=== PATIENT | female | born 1995 | race Caucasian/White ===

== ENCOUNTER 2020-10-06 14:34 | Emergency (ER) | payer OTHER, SELFPAY ==
[2020-10-06 14:43] VITALS: BP 109/65; PULSE 91; RESP 16; TEMP 37; O2SAT 100
--- NOTE | 2020-10-06 15:05 | ED.GENADULT ---
HPI - General Adult General Chief complaint: Ear Stated complaint: EARACHE/CONGESTION Source: patient and RN notes reviewed Limitations: no limitations History of Present Illness HPI narrative: The patient, a non-smoker/nondrinker, presents with a shorter couple day history of first scratchy sore throat, myalgias headache followed by congestion and ear fullness. No fever, cough, wheezing, vomiting/diarrhea; no Covid vaccination-no CP, loss of taste/smell, S OB. He believes the onset of symptoms occurred from sick family members/nieces and nephews Related Data Home Medications Medication Instructions Recorded Confirmed cetirizine mg 10/06/20 oxcarbazepine [Trileptal] 10/06/20 Allergies Allergy/AdvReac Type Severity Reaction Status Date / Time Penicillins Allergy Mild RASH/AFFECTED Verified 02/07/17 08:59 SEIZURES DIPHENHYDRAMINE HCL AdvReac Intermediate NEUROLOGICAL Uncoded 02/07/17 08:59 REACTION PMFSH Comments At time of signature, agree with nursing past medical, surgical, social and family history. There is no relevant family history pertinent to the presenting complaint Exam Narrative: Exam Narrative: General Appearance: Well appearing, Well nourished EYE: PERRLA, Conjunctiva clear Ears: Auditory canal normal, TM normal Nose: Rhinorrhea, Mucousal erythema Mouth/Throat: MM moist, Uvula midline, Pharyngeal erythema Neck: Supple, No adenopathy Respiratory: No respiratory distress, Breath sounds equal, Clear to auscultation Cardiovascular: RRR, No JVD Musculoskeletal: Non tender, Normal strength Skin: Warm, Dry Neurological: A&O x3, CN II-XII intact Psychiatric: Normal mood, Normal affect Course Vital Signs Vital signs: Vital Signs Temperature 98.6 F 10/06/20 14:43 Pulse Rate 91 10/06/20 14:43 Respiratory Rate 16 10/06/20 14:43 Blood Pressure 109/65 10/06/20 14:43 Pulse Oximetry 100 10/06/20 14:43 Temperature 98.6 F 10/06/20 14:43 Pulse Rate 91 10/06/20 14:43 Respiratory Rate 16 10/06/20 14:43 Blood Pressure 109/65 10/06/20 14:43 Pulse Oximetry 100 10/06/20 14:43 Medical Decision Making Vital Signs Vital Signs: Vital Signs Temperature 98.6 F 10/06/20 14:43 Pulse Rate 91 10/06/20 14:43 Respiratory Rate 16 10/06/20 14:43 Blood Pressure 109/65 10/06/20 14:43 Pulse Oximetry 100 10/06/20 14:43 Temperature 98.6 F 10/06/20 14:43 Pulse Rate 91 10/06/20 14:43 Respiratory Rate 16 10/06/20 14:43 Blood Pressure 109/65 10/06/20 14:43 Pulse Oximetry 100 10/06/20 14:43 Lab Data Labs: Lab Results 10/06/20 Range/Units 15:00 POC SARS CoV-2 Ag Negative (Negative) Discharge Plan Discharge Clinical Impression: Upper respiratory infection Patient Disposition: Home, Self-Care Condition: Stable Instructions: Upper Respiratory Infection (ED) Additional Instructions: You may also try OTC preparations like Flonase, antihistamines-like Claritin, Larissa Prescriptions: New azithromycin 250 mg tablet See Rx Instructions .ROUTE .COMPLEX Qty: 6 RF: 0 azelastine 137 mcg (0.1 %) aerosol,spray 137 mcg NASAL Q12H Qty: 30 RF: 0 No Action cetirizine 10 mg tablet RF: 0 oxcarbazepine [Trileptal] 300 mg/5 mL (60 mg/mL) suspension RF: 0 Other Ambulatory Orders: SARS-CoV-2 RNA, Qual RT-PCR (Routine) Location: Determined by Patient Ordered By: Armen Singh Follow-up/Referrals: PHYSICIAN NOT ON STAFF,NONSTAFF [Primary Care Provider] - Stand Alone Forms: Work/School Release IP
== END 2020-10-06 15:23 | disposition home or self-care (01) ==
PROVIDERS: Emergency Provider Emergency Medicine
DX: J06.9 Acute upper respiratory infection, unspecified (principal); Z20.822 Contact with and (suspected) exposure to COVID-19
CPT/HCPCS: 87426; 99213; C9803; G0463

== ENCOUNTER 2022-07-14 11:13 | Emergency (ER) | payer OTHER, SELFPAY ==
[2022-07-14 11:27] VITALS: BP 115/80; PULSE 112; RESP 16; TEMP 37.4; O2SAT 99
--- NOTE | 2022-07-14 11:57 | ED.URI ---
HPI - URI/Sore Throat General Chief Complaint: Upper Respiratory Infection Stated Complaint: SORE THROAT/CHEST PAIN/HEADACHE Time Seen by Provider: 07/14/22 11:50 Source: patient, RN notes reviewed and old records reviewed Mode of arrival: ambulatory Limitations: no limitations History of Present Illness HPI Narrative: 27-year-old female who presents to [facility] with complaints sore throat, headache, body aches, chest discomfort, no cough and no fever since yesterday. Patient reports she has taken some ibuprofen for her symptoms, denies any loss of appetite or any shortness of breath. Patient reports that she has not been COVID vaccinated and she has had close contact to someone who tested positive yesterday to COVID.Patient denies any shortness or breath or any pain with deep breathing. MD elicited complaint: cough, sore throat and other (headache, chest discomfort) Able to tolerate fluids by mouth: Yes Treatments prior to arrival: ibuprofen Related Data Home Medications Medication Instructions Recorded Confirmed cetirizine 10 mg tablet 10 mg PO DAILY 10/06/20 07/14/22 oxcarbazepine 300 mg/5 mL (60 300 mg PO BID 10/06/20 07/14/22 mg/mL) oral suspension (Trileptal) Allergies Allergy/AdvReac Type Severity Reaction Status Date / Time Penicillins Allergy Mild RASH/AFFECTED Verified 07/14/22 11:22 SEIZURES DIPHENHYDRAMINE HCL AdvReac Intermediate NEUROLOGICAL Uncoded 07/14/22 11:22 REACTION Review of Systems Review of Systems: CONSTITUTIONAL: Denies malaise, chills, sweats, or fever. EYES: Denies visual changes, redness, or discharge. ENT: Reports rhinorrhea, congestion, sinus pain, otalgia positive for sore throat. CARDIOVASCULAR: Denies chest pain, palpitations, or edema. RESPIRATORY: Reports no cough.? Denies dyspnea. GASTROINTESTINAL: Denies abdominal pain, nausea, vomiting, diarrhea SKIN: Denies rash or itching. MUSCULOSKELETAL:Reports myalgia. NEUROLOGIC: Reports headache. All systems reviewed & are unremarkable except as noted in HPI and below PMFSH Past Medical History Medical History (Updated 07/14/22 @ 14:29 by Edith Boswell NP) Bronchitis Epilepsy Otitis media Social History Social History (Updated 07/14/22 @ 14:27 by Edith Boswell NP) Smoking status: Never smoker Alcohol intake: unknown Substance use: unknown Gender identity (if verbalized by the patient): Female Comments At time of signature, agree with nursing past medical, surgical, social and family history. There is no relevant family history pertinent to the presenting complaint Exam Narrative: GENERAL: Well-appearing, well-nourished, and in no acute distress. HEAD: Normocephalic EYES: PERRLA, conjunctivae clear ENT: Nares clear, turbinates edematous and erythematous, clear discharge. Mucous membranes moist. TM pearly skelton with dull light reflex bilaterally; no tragal tenderness. Oropharynx erythematous without lesions. Tonsils not enlarged and without exudate, no drooling, no hoarseness, no trismus, uvula midline. NECK: Supple. No lymphadenopathy CHEST: Clear to auscultation, breath sounds equal. No wheezing, rhonchi, rales, or stridor. No respiratory distress, speaks in full sentences.no Cough noted SAO2 99% on room air HEART: Regular rate and rhythm. No murmur heard. SKIN: Warm, dry, no rash. NEURO: Alert and oriented x3. PSYCH: Normal mood and affect Course Course Emergency Course: Patient is aware of diagnosis, understands and agrees to treatment plan.? Anticipatory guidance given.? Patient agrees to follow-up as directed and is aware of reasons to seek care at the emergency department. Portions of this record may have been created with voice recognition software Level of Care: Express Care Visit Vital Signs Vital signs: Vital Signs Temperature 37.4 C 07/14/22 11:27 Pulse Rate 112 H 07/14/22 11:27 Respiratory Rate 16 07/14/22 11:27 Blood Pressure 115/
[2022-07-14 19:12] LABS: SARS-CoV-2 RNA PCR Positive
== END 2022-07-14 12:25 | disposition home or self-care (01) ==
PROVIDERS: Emergency Provider Registered Nurse
DX: U07.1 COVID-19 (principal); G40.909 Epilepsy, unspecified, not intractable, without status epilepticus
CPT/HCPCS: 87081; 87426; 87880; 99213; C9803; G0463; U0003; U0005

== ENCOUNTER 2022-09-29 12:53 | Emergency (ER) | payer OTHER, SELFPAY ==
--- NOTE | 2022-09-29 13:07 | ED.URI ---
HPI - URI/Sore Throat General Chief Complaint: Upper Respiratory Infection Stated Complaint: headache,fatigue,sore throat,hbp Time Seen by Provider: 09/29/22 13:07 Source: patient Mode of arrival: ambulatory Limitations: no limitations History of Present Illness HPI Narrative: Patient is a 27-year-old female who presents with sore throat, headache, right ear pain, fatigue since yesterday. Patient has been taking ibuprofen with moderate relief. Denies any fever, chills, congestion, runny nose, cough, nausea, vomiting, diarrhea. Recent exposure to strep. Related Data Home Medications Medication Instructions Recorded Confirmed oxcarbazepine 300 mg/5 mL (60 300 mg PO BID 10/06/20 09/29/22 mg/mL) oral suspension (Trileptal) Allergies Allergy/AdvReac Type Severity Reaction Status Date / Time Penicillins Allergy Mild RASH/AFFECTED Verified 09/29/22 13:10 SEIZURES DIPHENHYDRAMINE HCL AdvReac Intermediate NEUROLOGICAL Uncoded 09/29/22 13:10 REACTION Review of Systems Review of Systems: All systems reviewed & are unremarkable except as noted in HPI and below Constitutional: Constitutional: Denies body ache(s), Reports fatigue, Denies fever(s), Denies headache(s), Denies malaise and Denies weakness Eyes: Eyes: Denies loss of vision ENT: Reports otalgia, Denies headache(s), Denies nasal congestion, Denies sinus pain and Reports sore throat Cardiovascular: Cardiovascular: Denies chest pain, Denies irregular heart rhythm and Denies dyspnea Respiratory: Respiratory: Denies cough and Denies dyspnea Gastrointestinal: Gastrointestinal: Denies abdominal pain, Denies melena, Denies hematochezia, Denies diarrhea, Denies nausea and Denies vomiting Musculoskeletal: Musculoskeletal: Denies back pain, Denies myalgias and Denies arthralgias Integumentary/Breasts: Skin/Breast: Denies pruritus and Denies rash Neurologic: Denies headache(s), Denies loss of vision and Denies weakness Psychiatric: Psychiatric: Reports no additional psychiatric complaints [facility] Past Medical History Medical History (Updated 09/29/22 @ 13:16 by Maria De Jesus Reynolds APRN) Bronchitis Epilepsy Otitis media Social History Social History (Updated 07/14/22 @ 14:27 by Edith Boswell NP) Smoking status: Never smoker Alcohol intake: unknown Substance use: unknown Gender identity (if verbalized by the patient): Female Comments At time of signature, agree with nursing past medical, surgical, social and family history. There is no relevant family history pertinent to the presenting complaint. Exam Const: General: cooperative, healthy appearing, comfortable, no acute distress and well nourished Nutritional Appearance: well nourished Orientation/consciousness: patient oriented x3 Limitations: no limitations HENMT: Head: normal to inspection, normocephalic and atraumatic Ears: hearing grossly normal bilaterally, external ears normal, TM's normal bilaterally and EAC's normal Face/Nose/Sinus: Normal external nose present, Normal nares present, Normal nasal mucous membranes and turbinates present, Normal septum present, normal facial exam, sinuses nontender and face symmetric Face and sinus: normal facial exam, sinuses nontender and face symmetric Mouth: Yes Normal oral and palatal mucosa present, Yes lip normal and Yes moist mucous membranes Teeth and gingiva: dentition normal Throat: uvula midline, abnormal tonsil bilateral erythema, exudates and hypertrophy 3+ and posterior oropharynx abnormal edema, erythema and exudates Eyes: General: appearance normal, both eyes and all related structures Alignment and Position: alignment normal and position normal Periorbital: periorbital findings normal Eyelids: eyelids normal Pupils: Equal, round and reactive pupils present Neck: Neck: normal visual inspection, full ROM, no lymphadenopathy and supple Chest: Chest palpation & inspection: normal inspection of the chest and normal palpation of
[2022-09-29 13:16] VITALS: BP 110/72; PULSE 119; RESP 16; TEMP 36.4; O2SAT 98
== END 2022-09-29 13:43 | disposition home or self-care (01) ==
PROVIDERS: Emergency Provider Nurse Practitioner Family
DX: J02.0 Streptococcal pharyngitis (principal); G40.909 Epilepsy, unspecified, not intractable, without status epilepticus
CPT/HCPCS: 87880; 99213; G0463

== ENCOUNTER 2022-11-06 19:35 | Emergency (ER) | payer OTHER, SELFPAY ==
--- NOTE | 2022-11-06 19:36 | ED.ANIMALBIT ---
HPI - Animal Bite General Chief Complaint: Animal Bite Stated Complaint: Animal Bite Time Seen by Provider: 11/06/22 19:36 Source: patient Mode of arrival: ambulatory Limitations: no limitations History of Present Illness HPI narrative: Hayley is a 27-year-old female patient presenting to the clinic today with complaints of a dog bite to her right 4th finger. She reports she was getting ready to muscle a dog to complete a nail trim and the dog bit her. She has 2 puncture wounds to the volar aspect of her right 4th finger and 1 puncture wound to the dorsal aspect of the finger. Bleeding is controlled. This occurred around 930 this morning. States that the dog was fully vaccinated Related Data Home Medications Medication Instructions Recorded Confirmed oxcarbazepine 300 mg/5 mL (60 300 mg PO BID 10/06/20 11/06/22 mg/mL) oral suspension (Trileptal) Allergies Allergy/AdvReac Type Severity Reaction Status Date / Time Penicillins Allergy Mild RASH/AFFECTED Verified 11/06/22 19:40 SEIZURES DIPHENHYDRAMINE HCL AdvReac Intermediate NEUROLOGICAL Uncoded 11/06/22 19:40 REACTION Review of Systems Review of Systems: Pertinent positives per HPI. Patient denies any fever, chills, rash, headache, visual changes, dizziness, cough, runny nose, sore throat, shortness of breath, chest pain, palpitations, nausea, vomiting, diarrhea, constipation, abdominal pain, or any urinary issues. PMFSH Past Medical History Medical History Bronchitis Epilepsy Otitis media Social History Social History Smoking status: Never smoker Alcohol intake: unknown Substance use: unknown Gender identity (if verbalized by the patient): Female Comments At the time of my signature, I reviewed and agree with the nursing past medical, surgical, social, and family history. There is no relevant family history pertinent to the patient complaint. Exam Narrative: General: Well-developed, well nourished, in no apparent distress Head: Normocephalic, atraumatic. Cardio: Regular rate and rhythm, s1 and s2 normal, no murmur appreciated. Resp: Clear to auscultation bilaterally, no rhonchi, rales, wheezing or rubs. Integumentary: [place], warm, and dry, 2 puncture wounds to the volar aspect of the right 4th finger and 1 puncture wound to the dorsal aspect of the 4th finger, bleeding controlled, mild redness and swelling noted Course Course Emergency Course: Portions of this record may have been created with voice recognition software. Level of Care: Express Care Visit Vital Signs Vital signs: Vital signs reviewed MDM - Animal Bite MDM Narrative Medical decision making narrative: At the time of visit patient is resting comfortably on exam table. Patient has penicillin allergy so I will her prescription for doxycycline and metronidazole. Tetanus status was updated in the clinic today. Supportive measures were discussed with the patient she voiced understanding discharge instructions and agrees to treatment plan. Differential Diagnosis Differential diagnosis: Likely bite by animal, dog bite and other (Puncture wound) Discharge Plan Discharge Clinical Impression: Puncture wound Dog bite Qualifiers: Encounter type: initial encounter Qualified Code(s): W54.0XXA - Bitten by dog, initial encounter Patient Disposition: Home, Self-Care Condition: Stable Instructions: Antibiotic Form, Animal Bite (ED), Puncture Wound (ED) Additional Instructions: Tdap given in the clinic today Take doxycycline and metronidazole as prescribed Leave bandage on for 24 hours then may remove and apply band aide covering as needed. May apply triple antibiotic ointment to the wounds 1-2 times per day times 48 hours Keep wound clean and dry Watch for signs and symptoms of infection- redness, streaking, swelling,
[2022-11-06 19:46] VITALS: BP 131/92; PULSE 116; RESP 16; TEMP 37.3; O2SAT 99
[2022-11-06] MEDS: TETANUS,DIPHTHERIA,AC PERTUSSIS ADULT (0.5 ML) BOOSTRIX IM (19:53)
== END 2022-11-06 20:06 | disposition home or self-care (01) ==
LOC: EXPGOSH 19:41
PROVIDERS: Emergency Provider Nurse Practitioner Family
DX: S61.234A Puncture wound without foreign body of right ring finger without damage to nail, initial encounter (principal); W54.0XXA Bitten by dog, initial encounter; Z23 Encounter for immunization; G40.909 Epilepsy, unspecified, not intractable, without status epilepticus
CPT/HCPCS: 90471; 90715; 99213; G0463

== ENCOUNTER 2023-08-06 11:44 | Emergency (ER) | payer OTHER, SELFPAY ==
[2023-08-06 11:54] VITALS: BP 108/73; PULSE 98; RESP 16; TEMP 36.8; O2SAT 99
--- NOTE | 2023-08-06 12:14 | ED.URI ---
HPI - URI/Sore Throat General Chief Complaint: Upper Respiratory Infection Stated Complaint: Sore Throat and Abdominal Pain Time Seen by Provider: 08/06/23 12:09 Source: patient and RN notes reviewed Mode of arrival: ambulatory Limitations: no limitations History of Present Illness HPI Narrative: Patient presents today complaining of 2 day history of sore throat, congestion, fatigue, right ear pressure, stomachache. Denies fever, nausea, vomiting, diarrhea. Denies known sick contacts. She has tried no [id number] treatment prior to arrival. Related Data Home Medications Medication Instructions Recorded Confirmed oxcarbazepine 300 mg/5 mL (60 300 mg PO BID 10/06/20 08/06/23 mg/mL) oral suspension (Trileptal) Allergies Allergy/AdvReac Type Severity Reaction Status Date / Time Penicillins Allergy Mild RASH/AFFECTED Verified 08/06/23 11:53 SEIZURES DIPHENHYDRAMINE HCL AdvReac Intermediate NEUROLOGICAL Uncoded 08/06/23 11:53 REACTION Review of Systems Review of Systems: CONSTITUTIONAL: Denies body aches, fever, chills, or sweats.+ fatigue EYES: Denies visual changes, redness, or discharge. ENT: Denies rhinorrhea. + congestion, sore throat, right ear pressure CARDIOVASCULAR: Denies chest pain, palpitations, or edema. RESPIRATORY: Denies cough or dyspnea. GASTROINTESTINAL: Denies nausea, vomiting, or diarrhea. + stomach ache GENITOURINARY: Denies dysuria or hematuria. SKIN: Denies rash, itching, or wounds. MUSCULOSKELETAL: Denies back pain, joint pain, or myalgia. NEUROLOGIC: Denies headache, numbness, tingling, or weakness. PSYCH: Denies depression or anxiety. [facility] Past Medical History Medical History Bronchitis Epilepsy Otitis media Social History Social History Smoking status: Never smoker Alcohol intake: unknown Substance use: unknown Gender identity (if verbalized by the patient): Female Comments At time of signature, I have reviewed and agree with nursing past medical, surgical, social and family history unless otherwise noted. Please see nursing chart for further information. There is no relevant family history pertinent to the presenting complaint Exam Narrative: GENERAL: Well-appearing, well-nourished, and in no acute distress. HEAD: Normocephalic, atraumatic. EYES: EOMI. No redness or drainage. Conjunctivae normal. ENT: Mucous membranes pink and moist. Nares clear. No rhinorrhea. TMs normal bilaterally. Throat mildly erythematous without edema or exudate. Uvula midline. NECK: Normal AROM. Supple. Bilateral anterior cervical chain lymphadenopathy CHEST: No respiratory distress. Clear to auscultation. HEART: Regular rate and rhythm. No murmur appreciated. ABDOMEN: Soft, nontender, nondistended, normal active bowel sounds. EXTREMITIES: Normal range of motion. No edema. SKIN: Warm, dry, no rash. Capillary refill normal. Normal skin turgor. NEURO: No focal deficits. Alert and oriented x3. Gait steady. PSYCH: Normal affect. No signs of depression or anxiety. Course Course Level of Care: Express Care Visit Vital Signs Vital signs: Vital Signs Temperature 98.3 F 08/06/23 11:54 Pulse Rate 98 08/06/23 11:54 Respiratory Rate 16 08/06/23 11:54 Blood Pressure 108/73 08/06/23 11:54 Pulse Oximetry 99 08/06/23 11:54 Oxygen Delivery Room Air 08/06/23 11:54 Temperature 98.3 F 08/06/23 11:54 Pulse Rate 98 08/06/23 11:54 Respiratory Rate 16 08/06/23 11:54 Blood Pressure 108/73 08/06/23 11:54 Pulse Oximetry 99 08/06/23 11:54 Oxygen Delivery Room Air 08/06/23 11:54 Reviewed MDM - URI/Sore Throat MDM Narrative Medical decision making narrative: Rapid strep and influenza negative. Strep culture pending. Symptoms likely viral in etiology. Discussed [id number] medication use and duration
== END 2023-08-06 12:25 | disposition home or self-care (01) ==
PROVIDERS: Emergency Provider Nurse Practitioner
DX: B34.9 Viral infection, unspecified (principal); G40.909 Epilepsy, unspecified, not intractable, without status epilepticus
CPT/HCPCS: 87081; 87804; 87880; 99213; G0463

== ENCOUNTER 2023-08-07 17:03 | Emergency (ER) | payer OTHER, SELFPAY ==
[2023-08-07 17:14] VITALS: BP 121/74; PULSE 102; RESP 20; TEMP 37.6; O2SAT 99
--- NOTE | 2023-08-07 17:23 | ED.GENADULT ---
HPI - General Adult General Chief complaint: Upper Respiratory Infection Stated complaint: Sore Throat Time Seen by Provider: 08/07/23 17:23 Source: patient, RN notes reviewed and old records reviewed Mode of arrival: ambulatory Limitations: no limitations History of Present Illness HPI narrative: 28-year-old female to Express Care for complaint sore throat. Patient was seen here yesterday and diagnosed with viral syndrome after negative strep in clinic. Patient advised culture results were not available yet. Patient requesting rapid strep to be repeated due to continuation of symptoms. Patient denies chest pain, shortness of breath. Able to tolerate fluids by mouth. Respirations even and nonlabored. No signs of distress in exam room. Related Data Home Medications Medication Instructions Recorded Confirmed oxcarbazepine 300 mg/5 mL (60 300 mg PO BID 10/06/20 08/07/23 mg/mL) oral suspension (Trileptal) Allergies Allergy/AdvReac Type Severity Reaction Status Date / Time Penicillins Allergy Mild RASH/AFFECTED Verified 08/07/23 17:19 SEIZURES DIPHENHYDRAMINE HCL AdvReac Intermediate NEUROLOGICAL Uncoded 08/07/23 17:19 REACTION Review of Systems Review of Systems: All systems reviewed & are unremarkable except as noted in HPI and below Constitutional: Constitutional: Reports as per HPI and Reports fever(s) Eyes: Eyes: Reports no additional eye complaints ENT: Reports as per HPI and Reports sore throat Cardiovascular: Cardiovascular: Reports no additional cardiovascular complaints, Denies chest pain and Denies dyspnea Respiratory: Respiratory: Reports no additional respiratory complaints, Denies cough and Denies dyspnea Musculoskeletal: Musculoskeletal: Reports no additional musculoskeletal complaints Neurologic: Reports system reviewed and no additional complaints, except as documented Psychiatric: Psychiatric: Reports no additional psychiatric complaints [facility] Past Medical History Medical History Bronchitis Epilepsy Otitis media Social History Social History Smoking status: Never smoker Alcohol intake: unknown Substance use: unknown Gender identity (if verbalized by the patient): Female Comments At the time of my signature, I reviewed and agree with the nursing past medical, surgical, social, and family history. There is no relevant family history pertinent to the patient complaint. Exam Const: General: cooperative, no acute distress, alert, anxious, tired appearing, uncomfortable, well groomed, average body habitus and well nourished Nutritional Appearance: well nourished Orientation/consciousness: patient oriented x3 Limitations: no limitations HENMT: Head: normal to inspection Ears: external ears normal Face/Nose/Sinus: Normal external nose present, Normal nares present, normal facial exam, No erythema and No edema Face and sinus: normal facial exam, no erythema and no edema Mouth: Yes Normal oral and palatal mucosa present Throat: abnormal tonsil bilateral hypertrophy 2+, posterior oropharynx abnormal erythema and postnasal drainage Eyes: General: appearance normal, both eyes and all related structures Neck: Neck: normal visual inspection, full ROM and no meningeal signs Lymphatic: no lymphadenopathy noted and no lymphedema noted Chest: Chest palpation & inspection: normal inspection of the chest Resp: Effort & Inspection: normal respiratory effort and able to speak in complete sentences Auscultation: clear to auscultation bilaterally Cardio: Jugular venous distension: no JVD Rate: regular rate Rhythm: regular rhythm Back/Spine/Pelvis: Cervical Spine: cervical ROM normal Skin: General skin exam: normal color, no rashes or lesions noted and turgor normal Neuro: General: patient oriented x3, gait normal, moves all extremities and no menin
== END 2023-08-07 18:20 | disposition home or self-care (01) ==
PROVIDERS: Emergency Provider Nurse Practitioner Family
DX: B34.9 Viral infection, unspecified (principal); G40.909 Epilepsy, unspecified, not intractable, without status epilepticus
CPT/HCPCS: 87880; 99213; G0463

== ENCOUNTER 2023-09-28 20:11 | Emergency (ER) | payer OTHER, SELFPAY ==
--- NOTE | ~2023-09-28 | XR_ITS ---
XR foot RT min 3V Ordering provider: Sharad Mc MD History: . pain, injury . Comparison: None. FINDINGS: BONES: No acute fracture or dislocation. JOINT SPACES: Normal. No tarsal coalition. SOFT TISSUES: Normal. IMPRESSION: No acute osseous abnormality of the right foot. Reviewed, dictated and finalized at location A.
[2023-09-28 20:26] VITALS: BP 131/68; PULSE 79; RESP 18; TEMP 36.1; O2SAT 98
--- NOTE | 2023-09-28 21:02 | ED.GENADULT ---
HPI - General Adult General Chief complaint: Extremity Injury, Lower Stated complaint: foot injury Time Seen by Provider: 09/28/23 20:44 History of Present Illness HPI narrative: this is a pleasant 28-year-old female presenting for toe pain. Patient is playing soccer and she kicked the ground. She then had pain underneath her toenail. No other injuries. Related Data Home Medications Medication Instructions Recorded Confirmed oxcarbazepine 300 mg/5 mL (60 300 mg PO BID 10/06/20 08/14/23 mg/mL) oral suspension (Trileptal) Allergies Allergy/AdvReac Type Severity Reaction Status Date / Time Penicillins Allergy Mild RASH/AFFECTED Verified 08/14/23 08:29 SEIZURES DIPHENHYDRAMINE HCL AdvReac Intermediate NEUROLOGICAL Uncoded 08/07/23 17:19 REACTION PMFSH Past Medical History Medical History Bronchitis Epilepsy Otitis media Family History Family History (Updated 08/13/23 @ 15:15 by Lola Melgar) Father Diabetes mellitus Hypertension Mother Hypertension Social History Social History Smoking status: Never smoker Alcohol intake: unknown Substance use: unknown Gender identity (if verbalized by the patient): Female Exam Narrative: APPEARANCE: No apparent distress. Head: atraumatic. EYES: EOMI, NOSE: Atraumatic NECK: Trachea midline RESPIRATORY: No increased rate of breathing CARDIOVASCULAR: RRR, ABDOMINAL: Non-distended MUSCULOSKELETAl: Focal exam of the great toe revealed damage to the nail. No subungual hematoma. Pain on active and passive range of motion great toe NEURO: Alert. Moving 4/4 extremities SKIN:: Warm, dry. Normal color PSYCHIATRIC: Normal affect Course Vital Signs Vital signs: Vital Signs Temperature 97.0 F L 09/28/23 20:26 Pulse Rate 79 09/28/23 20:26 Respiratory Rate 18 09/28/23 20:26 Blood Pressure 131/68 09/28/23 20:26 Pulse Oximetry 98 09/28/23 20:26 Oxygen Delivery Room Air 09/28/23 20:26 Temperature 97.0 F L 09/28/23 20:26 Pulse Rate 79 09/28/23 20:26 Respiratory Rate 18 09/28/23 20:26 Blood Pressure 131/68 09/28/23 20:26 Pulse Oximetry 98 09/28/23 20:26 Oxygen Delivery Room Air 09/28/23 20:26 Medical Decision Making MDM Narrative Medical decision making narrative: -Course: 20-year-old female presenting with toe pain after kicking the ground. X-rays negative for fracture. No subungual hematoma. Patient discharged primary care follow-up. She declined all pain medications. -DDX includes but is not limited to: Bony injury, soft tissue injury, subungual hematoma -Co-morbidities complicating care: epilepsy -Independent interpretation of studies: x-ray negative fracture. -Shared decision making / Disposition: Discharge Vital Signs Vital Signs: Vital Signs Temperature 97.0 F L 09/28/23 20:26 Pulse Rate 79 09/28/23 20:26 Respiratory Rate 18 09/28/23 20:26 Blood Pressure 131/68 09/28/23 20:26 Pulse Oximetry 98 09/28/23 20:26 Oxygen Delivery Room Air 09/28/23 20:26 Temperature 97.0 F L 09/28/23 20:26 Pulse Rate 79 09/28/23 20:26 Respiratory Rate 18 09/28/23 20:26 Blood Pressure 131/68 09/28/23 20:26 Pulse Oximetry 98 09/28/23 20:26 Oxygen Delivery Room Air 09/28/23 20:26 Discharge Plan Discharge Clinical Impression: Great toe pain Patient Disposition: Home, Self-Care Condition: Stable Instructions: Antibiotic Form, Arthralgia (ED) Additional Instructions: you can use Motrin Tylenol for pain. Please follow-up with your primary care physician Prescriptions: No Action oxcarbazepine [Trileptal] 300 mg/5 mL (60 mg/mL) suspension 300 mg PO BID ferrous sulfate 325 mg (65 mg iron) tablet 325 mg PO DAILY Qty: 90 1RF Rx Instructions: take w/ glass of water or juice 30 minutes before o
== END 2023-09-28 21:10 | disposition home or self-care (01) ==
PROVIDERS: Emergency Provider Emergency Medicine; PCP Nurse Practitioner Family
DX: S99.921A Unspecified injury of right foot, initial encounter (principal); G40.909 Epilepsy, unspecified, not intractable, without status epilepticus; W22.8XXA Striking against or struck by other objects, initial encounter; Y93.66 Activity, soccer
CPT/HCPCS: 73630; 99283

== ENCOUNTER 2023-12-26 12:28 | Outpatient (CLI) | payer BC, MEDICAID, SELFPAY ==
--- NOTE | ~2023-12-26 | CT_ITS ---
EXAMINATION: CT abdomen pelvis wo con DATE: 12/26/2023 13:09 INDICATION: Unspecified abdominal pain. TECHNIQUE: Computed tomography (CT) of the abdomen and pelvis was performed without intravenous contr ast. Automated exposure control and iterative reconstruction technique were employed. The dose-length product was 230.43 mGy-cm. COMPARISON: None. FINDINGS: The visualized portions of the lung bases are clear without pneumonia or pleural effusion. The heart size is normal. No pericardial effusion. The liver, gallbladder, spleen, pancreas, adrenal glands, and kidneys are normal. There is no urolithiasis. There are no dilated loops of bowel. The ap pendix is normal. There are no pathologically enlarged lymph nodes. There is no free intraperitoneal fluid. The bones are unremarkable. IMPRESSION: 1. No etiology for the patient's symptoms. Reviewed, dictated and finalized at location A.
[2023-12-26 12:53] LABS: Pregnancy On Board Control Positive; Urine Pregnancy Test Negative
[2023-12-26 12:56] LABS: Add Urine Microscopic? YES; Appearance Urine Cloudy (Clear); Bacteria Urine 4+ /hpf; Bilirubin Urine Negative (Negative); Blood Urine 3+ (Negative); Color Urine Yellow (Yellow); Glucose Urine UA Negative (Negative); Ketones Urine Negative (Negative); Leukocyte Esterase Ur 2+ LEU/UL (Negative); Nitrate Urine Positive (Negative); Non Pathogenic Casts 0-2; Protein Urine 2+ mg/dL (Negative); Specific Grav Ur 1.021 (1.001-1.035); Squamous Epithelial Cell Urine Occasional /hpf (Few); Urobilinogen Urine 0.2 mg/dL (<2.0); WBC Urine 51-100 /hpf (0-3)
== END 2023-12-26 12:29 | disposition home or self-care (01) ==
PROVIDERS: PCP Nurse Practitioner Family; Visit Provider Nurse Practitioner Family
DX: R10.9 Unspecified abdominal pain (principal); R30.0 Dysuria; R31.9 Hematuria, unspecified
CPT/HCPCS: 74176; 81001; 81025; 87077; 87086; 87088; 87186

== ENCOUNTER 2024-02-29 15:22 | Emergency (ER) | payer BC, MEDICAID, SELFPAY ==
[2024-02-29 15:30] VITALS: BP 118/63; PULSE 104; RESP 16; TEMP 37.1; O2SAT 100
--- NOTE | 2024-02-29 15:33 | ED.URI ---
HPI - URI/Sore Throat General Chief Complaint: Upper Respiratory Infection Stated Complaint: Congestion/Headache Time Seen by Provider: 02/29/24 15:33 Source: patient, RN notes reviewed and old records reviewed Mode of arrival: ambulatory Limitations: no limitations History of Present Illness HPI Narrative: 28-year-old female who presents to [facility] with complaints of head congestion, sore throat and body aches since yesterday with stated sinus pressure and pain. Patient reports no headache pain or any known fevers or acute cough denies any ear pain. Patient reports that she has been taking Advil for her symptoms. MD elicited complaint: sore throat, rhinorrhea and nasal congestion Onset (ago): day(s) (day 2 of symptoms) Severity: mild Description of mucous: clear Able to tolerate fluids by mouth: Yes Treatments prior to arrival: other (Advil) Related Data Home Medications Medication Instructions Recorded Confirmed oxcarbazepine 300 mg/5 mL (60 300 mg PO BID 10/06/20 02/29/24 mg/mL) oral suspension (Trileptal) Allergies Allergy/AdvReac Type Severity Reaction Status Date / Time Penicillins Allergy Mild RASH/AFFECTED Verified 12/26/23 11:59 SEIZURES DIPHENHYDRAMINE HCL AdvReac Intermediate NEUROLOGICAL Uncoded 12/26/23 11:59 REACTION Review of Systems Review of Systems: CONSTITUTIONAL: Denies malaise, chills, sweats, or fever. EYES: Denies visual changes, redness, or discharge. ENT: Reports rhinorrhea, congestion, sinus pain, no otalgia and positive sore throat. CARDIOVASCULAR: Denies chest pain, palpitations, or edema. RESPIRATORY: Reports cough.? Denies dyspnea. GASTROINTESTINAL: Denies abdominal pain, nausea, vomiting, diarrhea SKIN: Denies rash or itching. MUSCULOSKELETAL: reports myalgia. NEUROLOGIC: Denies headache. All systems reviewed & are unremarkable except as noted in HPI and below PMFSH Past Medical History Medical History Bronchitis Epilepsy Otitis media Family History Family History Father Diabetes mellitus Hypertension Mother Hypertension Social History Social History Smoking status: Never smoker Alcohol intake: unknown Substance use: unknown Gender identity (if verbalized by the patient): Female Comments At time of signature, agree with nursing past medical, surgical, social and family history. There is no relevant family history pertinent to the presenting complaint Exam Narrative: GENERAL: Well-appearing, well-nourished, and in no acute distress. HEAD: Normocephalic EYES: PERRLA, conjunctivae clear ENT: Nares clear, turbinates edematous and erythematous, clear discharge. Mucous membranes moist. TM pearly skelton with dull light reflex bilaterally; no tragal tenderness. Oropharynx erythematous without lesions. Tonsils not enlarged and without exudate, no drooling, no hoarseness, no trismus, uvula midline. NECK: Supple. No lymphadenopathy CHEST: Clear to auscultation, breath sounds equal. No wheezing, rhonchi, rales, or stridor. No respiratory distress, speaks in full sentences.SAO2 100% on room air HEART: Regular rate and rhythm. No murmur heard. SKIN: Warm, dry, no rash. NEURO: Alert and oriented x3. PSYCH: Normal mood and affect Course Course Emergency Course: Patient is aware of diagnosis, understands and agrees to treatment plan.? Anticipatory guidance given.? Patient agrees to follow-up as directed and is aware of reasons to seek care at the emergency department. Portions of this record may have been created with voice recognition software Level of Care: Express Care Visit Vital Signs Vital signs: Vital Signs Temperature 37.1 C 02/29/24 15:30 Pulse Rate 104 H 02/29/24 15:30 Respiratory Rate 16 02/29/24 15:30 Blood Pressure 118/63 02/29/24 15:30 Pulse Oximetry 100 02/29/24 15:30 Temperature 37.1 C 02/29/24 15:30 Pulse Rate 104 H 02/29/24 15:30 Respiratory Rate 16 02/29/24 15:30 Blood Pressure 118/63 02/29/24 15:30 Pulse Oximetry 100 02/29/24 15:30 Reviewed MDM - URI/Sore Throat MDM Narrative Medical decision making narrative: Differential diagnosis considered: Torres virus, strep pharyngitis, allergic rhinitis, upper respiratory tract infection, sinusitis, rhinosinusitis, nasopharyngitis. viral pharyngitis, otitis media, otitis externa, pneumonia, bronchitis, viral cough syndrome, viral syndrome, and influenza.? Exam findings show no acute concerns or changes; patient is non-toxic appearing and is in no distress.? Patient is appropriate for outpatient treatment and follow-up. Differential Diagnosis Differential diagnosis: Likely upper respiratory infection, otitis media, sinusitis, viral infection, influenza, pharyngitis and other (strep pharyngitis) Medical Records Attestation: I reviewed the patient's medical records. Lab Data Attestation: I reviewed the patient's lab results. Lab results narrative: strep screen negative, culture sent, Influenza A negative, Influenza B negative Critical Care Time Critical Care Time Critical Care Time: No Discharge Plan Discharge Clinical Impression: Upper respiratory infection Qualifiers: URI type: unspecified URI Qualified Code(s): J06.9 - Acute upper respiratory infection, unspecified Patient Disposition: Home, Self-Care Condition: Stable Instructions: Upper Respiratory Infection (ED) Additional Instructions: Increase fluids especially juices and water [id number] cough and cold medicine of your choice for your symptoms Zyrtec, Claritin, or Larissa daily for sinus congestion Steroids as directed--take with food heat to the face 20-30 minutes 4-6 times a day for pain Salt water gargles, throat lozenges or throat sprays as desired Tylenol or ibuprofen for any fever pain If your symptoms persist, change or worsen significantly before you can contact your personal physician then please, without delay, go to the emergency department for further evaluation. Follow-up with PCP in 7-10 days or sooner if needed Prescriptions: New methylprednisolone [Medrol (Norman)] 4 mg tablets,dose pack See Rx Instructions .ROUTE .COMPLEX Qty: 21 0RF Rx Instructions: orally per package directions No Action oxcarbazepine [Trileptal] 300 mg/5 mL (60 mg/mL) suspension 300 mg PO BID ferrous sulfate 325 mg (65 mg iron) tablet 325 mg PO DAILY Qty: 90 1RF Rx Instructions: take w/ glass of water or juice 30 minutes before or 2 hours after meals or other medications Follow-up/Referrals: PHYSICIAN,EDITORIAL MANAGER [Primary Care Provider] - Time of Disposition: 16:11 Quality [place] Coma Scale Eyes: Open Verbal: Oriented and Alert Motor: Follows Commands [place] Coma Total Score: 15
[2024-03-03 10:02] LABS: EDINFLUASCREEN Negative (Negative); EDINFLUBSCREEN Negative (Negative); EDSTREPNEGPOS1 Negative (Negative)
== END 2024-02-29 16:11 | disposition home or self-care (01) ==
PROVIDERS: Emergency Provider Registered Nurse
DX: J06.9 Acute upper respiratory infection, unspecified (principal); G40.909 Epilepsy, unspecified, not intractable, without status epilepticus
CPT/HCPCS: 87081; 87804; 87880; 99213; G0463

== ENCOUNTER 2024-05-13 16:26 | Emergency (ER) | payer BC, MEDICAID, SELFPAY ==
--- NOTE | 2024-05-13 16:44 | ED.FEMALEGU ---
HPI - Female Genitourinary General Chief complaint: Urogenital-Female Stated complaint: UTI Symptoms Time Seen by Provider: 05/13/24 17:21 Source: patient and RN notes reviewed Mode of arrival: ambulatory Limitations: no limitations History of Present Illness HPI Narrative: 28-year-old female presents with concern for 2 day history of urine frequency and urgency. Reports occasional vaginal irritation. Denies rash, abnormal discharge. She denies dysuria, hematuria, flank pain, abdominal pain, nausea, vomiting, diarrhea, fever, chills. MD elicited complaint: UTI Related Data Home Medications ?Medication ?Instructions ?Recorded ?Confirmed ?Last Taken ?Type oxcarbazepine 300 mg/5 mL (60 300 mg PO BID 10/06/20 02/29/24 Unknown History mg/mL) oral suspension (Trileptal) Allergies Allergy/AdvReac Type Severity Reaction Status Date / Time Penicillins Allergy Mild RASH/AFFECTED Verified 12/26/23 11:59 SEIZURES DIPHENHYDRAMINE HCL AdvReac Intermediate NEUROLOGICAL Uncoded 12/26/23 11:59 REACTION Review of Systems Review of Systems: CONSTITUTIONAL: Denies malaise, chills, sweats, or fever. CARDIOVASCULAR: Denies chest pain, palpitations, or edema. RESPIRATORY: Denies cough or dyspnea. GASTROINTESTINAL: Denies abdominal pain, nausea, vomiting, diarrhea GENITOURINARY: Reports frequency, urgency, suprapubic pressure. Denies dysuria. Denies flank pain or hematuria. SKIN: Denies rash or itching. MUSCULOSKELETAL: Denies back pain or myalgia. All systems reviewed & are unremarkable except as noted in HPI and below PMFSH Past Medical History Medical History Bronchitis Epilepsy Otitis media Family History Family History Father Diabetes mellitus Hypertension Mother Hypertension Social History Social History Smoking status: Never smoker Alcohol intake: unknown Substance use: unknown Gender identity (if verbalized by the patient): Female Comments At time of signature, agree with nursing past medical, surgical, social and family history. There is no relevant family history pertinent to the presenting complaint Exam Narrative: GENERAL: Well-appearing, well-nourished, and in no acute distress. HEAD: Normocephalic. EYES: PERRLA, conjunctivae clear. NECK: Supple. No lymphadenopathy CHEST: Clear to auscultation. No respiratory distress. HEART: Regular rate and rhythm. ABDOMEN: Soft, nontender upon palpation, nondistended, normal active bowel sounds, no palpable or pulsatile masses, no guarding. No CVA tenderness SKIN: Warm, dry, no rash. NEURO: Alert and oriented x3. PSYCH: Normal mood and affect Course Course Emergency Course: Patient is aware of diagnosis, understands and agrees to treatment plan. Anticipatory guidance given. Patient agrees to follow-up as directed and is aware of reasons to seek care at the emergency department. Portions of this record may have been created with voice recognition software Level of Care: Express Care Visit Vital Signs Vital signs: Reviewed. MDM - Female Genitourinary MDM Narrative Medical decision making narrative: Exam findings and UA show no acute concerns or changes; patient is non-toxic appearing and is in no distress. Patient is appropriate for outpatient treatment and follow-up. Differential Diagnosis Differential diagnosis: Likely urinary tract infection and cystitis Critical Care Time Critical Care Time Critical Care Time: No Discharge Plan Discharge Clinical Impression: Urine frequency Patient Disposition: Home, Self-Care Condition: Stable Instructions: Urinary Urgency and Frequency (DC) Additional Instructions: We will send a urine culture to the lab; if the culture identifies an organism that requires antibiotic, you will receive a phone call from an urgent care staff member and an appropriate antibiotic will be prescribed. -Recommend: increase water intake. Tylenol/ibuprofen as needed for pain or fever -Follow-up with your primary care provider for urine recheck or seek ER visit if condition worsens with high fever, nausea, vomiting and severe back pain. Patient Language: Greenlandic Prescriptions: No Action oxcarbazepine [Trileptal] 300 mg/5 mL (60 mg/mL) suspension 300 mg PO BID methylprednisolone [Medrol (Norman)] 4 mg tablets,dose pack See Rx Instructions .ROUTE .COMPLEX Qty: 21 0RF Rx Instructions: orally per package directions ferrous sulfate 325 mg (65 mg iron) tablet 325 mg PO DAILY Qty: 90 1RF Rx Instructions: take w/ glass of water or juice 30 minutes before or 2 hours after meals or other medications Follow-up/Referrals: PHYSICIAN,HERBICIDE SERVICE SALES REPRESENTATIVE [Primary Care Provider] - Time of Disposition: 17:26
[2024-05-13 16:58] LABS: EDUAAPPEAR Clear; EDUABILI Negative (Negative); EDUABLOOD Negative (Negative); EDUACOLOR1 Dark; EDUAGLUCOSE Negative (Negative); EDUAKETONE Negative (Negative); EDUALEUKO Negative (Negative); EDUANITRATE Negative (Negative); EDUAPROTEIN Trace (Negative); EDUAUROBILI 0.2
[2024-05-13 17:01] VITALS: BP 118/79; PULSE 83; RESP 16; TEMP 36.9; O2SAT 100
== END 2024-05-13 17:38 | disposition home or self-care (01) ==
PROVIDERS: Emergency Provider Nurse Practitioner
DX: R35.0 Frequency of micturition (principal); G40.909 Epilepsy, unspecified, not intractable, without status epilepticus
CPT/HCPCS: 81003; 87086; 99213; G0463

== ENCOUNTER 2024-09-14 14:15 | Emergency (ER) | payer BC, MEDICAID, SELFPAY ==
[2024-09-14 15:08] VITALS: BP 121/75; PULSE 93; RESP 16; TEMP 37.2; O2SAT 100
[2024-09-14 15:27] LABS: EDUAAPPEAR Clear; EDUABILI 1+ (Negative); EDUABLOOD Negative (Negative); EDUACOLOR1 Amber; EDUAGLUCOSE Negative (Negative); EDUAKETONE Trace (Negative); EDUALEUKO Trace (Negative); EDUANITRATE Negative (Negative); EDUAPROTEIN 1+ (Negative); EDUAUROBILI 0.2
[2024-09-14 19:19] LABS: Trichomonas Vag PCR NOT DETECTED (NOT DETECTE)
[2024-09-14 19:42] LABS: Chlamydia trachomatis NOT DETECTED (NOT DETECTE); Neisseria gonorrhoeae PCR NOT DETECTED (NOT DETECTE)
== END 2024-09-14 16:03 | disposition home or self-care (01) ==
PROVIDERS: Emergency Provider Nurse Practitioner Family; PCP Family Medicine
DX: R10.2 Pelvic and perineal pain (principal); N89.8 Other specified noninflammatory disorders of vagina; Z11.3 Encounter for screening for infections with a predominantly sexual mode of transmission; G40.909 Epilepsy, unspecified, not intractable, without status epilepticus
CPT/HCPCS: 81003; 81513; 87070; 87086; 87491; 87591; 87661; 99213; G0463

== ENCOUNTER 2025-03-24 15:53 | Outpatient (CLI) | payer BC, MEDICAID, SELFPAY ==
--- NOTE | ~2025-03-24 | XR_ITS ---
EXAMINATION: XR ribs RT 2V, 03/24/2025 16:08 [employer] HISTORY: R07.89 - Other chest pain COMPARISON: No comparisons available. Findings: No acute fracture or malalignment. No significant degenerative changes. Soft tissues unremarkable. Impression: No acute fracture or malalignment. Reviewed, dictated and finalized at location P. [employer] Impression: No acute fracture or malalignment.
== END 2025-03-24 15:54 | disposition home or self-care (01) ==
LOC: MICIMG 15:56
PROVIDERS: PCP Nurse Practitioner Family; Visit Provider Nurse Practitioner Family
DX: R07.89 Other chest pain (principal)
CPT/HCPCS: 71100

== ENCOUNTER 2025-03-25 13:49 | Outpatient (CLI) | payer BC, MEDICAID, SELFPAY ==
--- NOTE | ~2025-03-25 | US_ITS ---
EXAMINATION: US abdomen limited DATE: 03/25/2025 14:30 INDICATION: Right upper quadrant abdominal pain TECHNIQUE: Multiple grayscale and Doppler ultrasound images of the abdomen were obtained. COMPARISON: None FINDINGS: The abdominal aorta and inferior vena cava are normal. The pancreatic head and body are normal in appearance. The pancreatic tail is not visualized. Liver has normal echogenicity and contour, with a smooth surface. No liver lesion identified. No intrahepatic biliary duct dilation suspected. Portal venous flow was seen in the hepatopetal, normal direction and has normal Doppler waveform. The gallbladder is normal in appearance. There is no cholelithiasis. The common bile duct measures 3 mm, which is normal. Sonographic Montez sign was reported as negative by the pole peeling machine operator helper.Right kidney measures 9.2 x 3.2 cm with normal contour and axis and no hydronephrosis. IMPRESSION: 1. Normal right upper quadrant ultrasound. Reviewed, dictated and finalized at location A. MENDER
== END 2025-03-25 13:50 | disposition home or self-care (01) ==
PROVIDERS: PCP Nurse Practitioner Family; Visit Provider Nurse Practitioner Family
DX: R10.11 Right upper quadrant pain (principal)
CPT/HCPCS: 76705